=== PATIENT | female | born 1975 | race Caucasian/White ===

== ENCOUNTER 2016-12-31 18:38 | Emergency (ER) | payer OTHER ==
[2016-12-31 19:52] VITALS: BP 120/66
--- NOTE | 2016-12-31 20:36 | UC ---
Respiratory Complaint HPI - HPI Summary HPI Summary: URI symptoms for a week. Congested, feverish, body aches, fatigue for a week. Now starting with ST and cough. Hard to sleep due to persistent cough. No ill contacts she knows of. No flu shot. No vomiting or diarrhea - History of Current Complaint Chief Complaint: UCRespiratory Stated Complaint: SORE THROAT,COUGH Time Seen by Provider: 12/31/16 20:01 Hx Obtained From: Patient Hx Last Menstrual Period: 12/01/16 Onset/Duration: Gradual Onset, Lasting Weeks - 1 Timing: Constant Severity Initially: Mild Severity Currently: Mild Character: Cough: Nonproductive Aggravating Factors: Exertion, Recumbent Position Alleviating Factors: Nothing Associated Signs And Symptoms: Positive: Fever, Chills, URI, Nasal Congestion, Hoarseness. Negative: Pleuritic Chest Pain, Wheezing, Hemoptysis - Risk Factors Pulmonary Embolism Risk Factors: Negative Cardiac Risk Factors: Negative Pseudomonas Risk Factors: Negative Tuberculosis Risk Factors: Negative - Allergies/Home Medications Allergies/Adverse Reactions: Allergies Allergy/AdvReac Type Severity Reaction Status Date / Time No Known Allergies Allergy Verified 12/31/16 19:52 PMH/Surg Hx/FS Hx/Imm Hx Previously Healthy: Yes Endocrine History Of: Denies: Diabetes, Thyroid Disease Cardiovascular History Of: Denies: Cardiac Disorders, Hypertension, Pacemaker/ICD Respiratory History Of: Denies: Asthma GI/ History Of: Denies: Renal Disease - Surgical History Surgical History: Yes Surgery Procedure, Year, and Place: Left Wrist Fracture, 2012, [place](PLATE & SCREWS) - Family History Known Family History: Positive: Hypertension - Social History Occupation: Employed Full-time Lives: Alone Alcohol Use: Occasionally Substance Use Type: None Smoking Status (MU): Former Smoker Review of Systems Constitutional: Fever, Chills, Fatigue Skin: Negative Eyes: Negative ENT: Sore Throat, Nasal Discharge Respiratory: Cough Cardiovascular: Negative Gastrointestinal: Negative Genitourinary: Negative Motor: Negative Neurovascular: Negative Musculoskeletal: Negative Neurological: Negative Psychological: Negative All Other Systems Reviewed And Are Negative: Yes Physical Exam Triage Information Reviewed: Yes Appearance: Well-Appearing, No Pain Distress, Well-Nourished Vital Signs: Initial Vital Signs Temp 99.4 F 12/31/16 19:45 Pulse 74 12/31/16 19:45 Resp 20 12/31/16 19:45 BP 120/66 12/31/16 19:45 Pulse Ox 99 12/31/16 19:45 Vital Signs Reviewed: Yes Eye Exam: Normal ENT: Positive: Normal ENT inspection, Pharyngeal erythema, Nasal congestion, TMs normal, Muffled/hoarse voice - hoarse. Negative: Tonsillar swelling, Tonsillar exudate, Trismus Neck exam: Normal Neck: Positive: Supple Respiratory Exam: Normal Respiratory: Positive: Lungs clear, Normal breath sounds, No respiratory distress, No accessory muscle use Cardiovascular Exam: Normal Musculoskeletal Exam: Normal Neurological Exam: Normal Psychological Exam: Normal Skin Exam: Normal UC Diagnostic Evaluation - Laboratory O2 Sat by Pulse Oximetry: 99 Diagnostic Studies Comment: Strep neg Respiratory Course/Dx - Differential Dx/Diagnosis Differential Diagnosis/HQI/PQRI: Bronchitis, Lower Resp Infection, Sinusitis Provider Diagnoses: URI Discharge - Discharge Plan Condition: Stable Disposition: HOME Prescriptions: Guaifenesin-Codeine [Cheratussin AC] 1 - 2 teasp PO Q4HR PRN #120 ml MDD 30ml PRN Reason: Cough Patient Education Materials: Upper Respiratory Infection (ED) Referrals: Renee Leahy MD [Primary Care Provider] -
== END 2016-12-31 20:44 | disposition home or self-care (01) ==
LOC: UCCORT 18:38
DX: J06.9 Acute upper respiratory infection, unspecified (principal); Z87.891 Personal history of nicotine dependence
CPT/HCPCS: 87651; 99212; G0463

== ENCOUNTER 2018-10-26 18:08 | Emergency (ER) | payer OTHER ==
[2018-10-26 18:44] VITALS: BP 121/73
--- NOTE | 2018-10-26 20:23 | UC ---
Upper Extremity HPI - HPI Summary HPI Summary: Pt presents with persistent right wrist pain s/p fall while ice skating. Pt landed on lateral aspect of wrist. Pt states has had persistent discomfort since - states pain with ROM and movement of wrist. Pt states mostly feels deep ache with pronate/supinate. No paresthesia. PT with injury to wrist 30 years ago. Pt RHD. No analgesia taken. Pt's medications reviewed - History of Current Complaint Chief Complaint: UCUpperExtremity Stated Complaint: RT WRIST INJURY Time Seen by Provider: 10/26/18 20:22 Hx Obtained From: Patient Hx Last Menstrual Period: 10/19/18 Onset/Duration: Sudden Onset, Lasting Weeks Severity Initially: Mild Severity Currently: Moderate Pain Intensity: 5 Pain Scale Used: 0-10 Numeric Location Of Pain: Is Discrete @ - medial aspect distal wrist Aggravating Factor(s): Movement, Other - pronate/supinate Associated Signs And Symptoms: Positive: Swelling - Allergies/Home Medications Allergies/Adverse Reactions: Allergies Allergy/AdvReac Type Severity Reaction Status Date / Time No Known Allergies Allergy Verified 10/26/18 18:25 Home Medications: Home Medications B P Med For Palpitations 1 dose PO DAILY 10/26/18 [History Confirmed 10/26/18] Naproxen Sodium [Naproxen 220 mg] 440 mg PO DAILY PRN 10/26/18 [History Confirmed 10/26/18] Zolpidem TAB* [Ambien TAB*] 5 mg PO BEDTIME PRN 10/26/18 [History Confirmed ] PMH/Surg Hx/FS Hx/Imm Hx Previously Healthy: Yes - Surgical History Surgical History: Yes Surgery Procedure, Year, and Place: Left Wrist Fracture, 2013, [place] (PLATE & SCREWS) - Family History Known Family History: Positive: Hypertension - Social History Occupation: Employed Full-time - [employer] Alcohol Use: Occasionally Substance Use Type: None Smoking Status (MU): Former Smoker - Immunization History Most Recent Tetanus Shot: 2018 Review of Systems All Other Systems Reviewed And Are Negative: Yes Constitutional: Positive: Negative Skin: Positive: Other - mild edema right wrist, dorsum, medial aspect Motor: Positive: Negative Musculoskeletal: Positive: Other: - pain wrist, right Neurological: Positive: Negative Psychological: Positive: Negative Physical Exam - Summary Physical Exam Summary: Vital Signs Reviewed: Yes A+Ox3, no distress Eyes: Conjunctiva Clear ENT: Hearing grossly normal neck: supple Respiratory: Positive: No respiratory distress, No accessory muscle use Cardiovascular: skin color reflect adequate perfusion 2+ radial, ulnar CBT < 2 sec all digits Musculoskeletal Exam: LAND x 4 without difficulty, + flex/ext wrist + pronate/ supinate elbow with pain medial aspect of wrist + TTP ulnar styloid area no crepitus. No pain carpals, metacarpals, phalanges Neurological: Positive: Alert, ambulatory without difficulty, + thumb up, a ok , finger spread, finger cross Psychological: Positive: Normal Response To Family Skin: Positive: no rash, no ecchymosis Triage Information Reviewed: Yes Vital Signs: Initial Vital Signs Temp 97.7 F 10/26/18 18:35 Pulse 52 10/26/18 18:35 Resp 20 10/26/18 18:35 BP 121/73 10/26/18 18:35 Pulse Ox 99 10/26/18 18:35 Diagnostics - Radiology No standard instances Radiology Interpretation Completed By: ED Physician - minimally displaced, subacute distal ulnar fracture Upper Extremity Course/Dx - Course Course Of Treatment: PT presents with pain and discomfort right distal wrist s/ p fall 8 weeks ago - pt landed on wrist Pt with persistent pain - increases with movement. imaging shows ?subacute fracture distal ulnar. pt with previous styloid fracture - Differential Dx/Diagnosis Provider Diagnosis: Right distal ulnar fracture Discharge - Sign-Out/Discharge Documenting (check all that apply): Patient Departure All imaging exams completed and their final reports reviewed: No - Discharge Plan Condition: Stable Disposition: HOME Patient Education Materials: Wrist Fracture in Adults (ED) Referrals: Lv Rios MD [Medical Doctor] - (Call in the morning for a follow-up appointment this week ) Nurys Lehman [Primary Care Provider] - Additional Instructions: The doctor that evaluated you thinks you have a fracture (break to your wrist) from your recent fall. This appears to be partially healing It is recommended you contact Dr. Rios - orthopedic provider -call first thing tomorrow to schedule a follow-up appointment WEar conrado wrap and splint for support Okay to alternate ibuprofen (Advil, Motrin) and Tylenol every 3 hours for pain. Take with food - Billing Disposition and Condition Condition: STABLE Disposition: Home
--- NOTE | 2018-10-27 08:17 | UC ---
- Progress Note Progress Note: Patient Name: PRIYA GOINS Medical Record#: [id number] Ordering Physician: Marlin AGRCIA Acct.#: [id number] : 1975 Age: 43 Sex: F [place] [facility] [place] Date: 10/26/181843 ADM Status: [facility] ER Order Information: WRIST RIGHT 3+ VWS Accession Number: [id number] CPT: 71795 Indication: Right wrist pain 3 views of the wrist demonstrates no fracture. No other bone or joint abnormality is identified. Old fracture of the ulnar styloid process is noted. IMPRESSION: No recent fracture is noted. R0 Preliminary Imaging Read R0 <Electronically signed by Heydi Rhodes MD in OV> 10/27/18749 Dictated By: Heydi Rhodes MD Dictated Date/Time: 10/27/18 075 Transcribed Date/Time: 10/27/18 0749 Copy to: CC:Nurys Lehman [employer] MANAGER; Marlin GARCIA; Yaa Davis MD Imaging - [facility] [address] [address] ph ([phone]) ph ([phone]) ph ([phone]) This report is only to be considered final once signed by the Provider(s) as displayed in the "<Electronically Signed by >" field (s). Absence of a signature indicates the report is in a draft status and still needs to be finalized. In the event this document was created by someone other than the signing Provider, the individual initiating the document will be listed in the "Entered by:" or "Dictated by:" alba. 1 of 1 Course/Dx - Diagnoses Provider Diagnoses: Right distal ulnar fracture Discharge - Sign-Out/Discharge Documenting (check all that apply): Post-Discharge Follow Up All imaging exams completed and their final reports reviewed: Yes - Discharge Plan Condition: Stable Disposition: HOME Patient Education Materials: Wrist Fracture in Adults (ED) Referrals: Lv Rios MD [Medical Doctor] - (Call in the morning for a follow-up appointment this week ) Nurys Lehman [Primary Care Provider] - Additional Instructions: The doctor that evaluated you thinks you have a fracture (break to your wrist) from your recent fall. This appears to be partially healing It is recommended you contact Dr. Rios - orthopedic provider -call first thing tomorrow to schedule a follow-up appointment WEar conrado wrap and splint for support Okay to alternate ibuprofen (Advil, Motrin) and Tylenol every 3 hours for pain. Take with food - Billing Disposition and Condition Condition: STABLE Disposition: Home
== END 2018-10-26 20:53 | disposition home or self-care (01) ==
LOC: UCCORT 18:08
DX: S52.611A Displaced fracture of right ulna styloid process, initial encounter for closed fracture (principal); Y93.21 Activity, ice skating; Y92.9 Unspecified place or not applicable; Z87.891 Personal history of nicotine dependence
CPT/HCPCS: 99213; G0463

== ENCOUNTER 2018-11-29 13:31 | Emergency (ER) | payer OTHER ==
--- OUTSIDE RECORDS SUMMARY | 2018-11-29 13:44 | XMS REPORT | Continuity of Care Document ---
:1975 External Reference #:[id number] Author Name Mirella Fritz Care Team Providers Name Role Phone Nurys Lehman F.N.P Primary Care Physician Unavailable Payers Type Date Identification Numbers Payment Provider Subscriber Policy Number: [id number] [employer] Number: [id number] [address] [address] PayID: [id number] GiselleMELECIO [id number] Onset: 2015 Policy Number: [id number] [employer] Group Number: [id number] [address] PayID: [id number] [place] [address] Advance Directives Description No Information Available Problems Date Description Provider Status Onset: 11/05/2018 Late effect of sprain AND/OR strain Donte Phipps MD Active without tendon injury Onset: 11/05/2018 Late effect of fracture of upper Donte Phipps MD Active extremities Onset: 10/15/2015 Degeneration of lumbar intervertebral Junaid Mena M.D. Active disc Onset: 10/04/2015 Lumbar radiculopathy Junaid Mena M.D. Active Family History Date Family Member(s) Problem(s) Comments General Diabetes General Multiple Myeloma Social History Type Date Description Comments Sex Unknown Marital Status Single Lives With Boyfriend Lives With Son Occupation Currently Working [employer] ETOH Use Occasionally consumes alcohol Tobacco Use Start: Unknown End: Patient is a former Unknown smoker Recreational Drug Use Denies Drug Use Smoking Status Reviewed: 11/05/18 Patient is a former smoker Exercise Type/Frequency Exercises regularly Allergies, Adverse Reactions, Alerts Description No Known Drug Allergies Medications Medication Date Status Form Strength Qnty SIG Indications Ordering Provider Lexapro Active Tablets 20mg 1 by Unknown 000 mouth every day Zolpidem Tartrate 0 Active Tablets 10mg 1 tab by Unknown 000 mouth every night at bedtime as needed mdd 1 Naproxen Sodium Active Tablets 220mg as needed Unknown 000 Cyclobenzaprine 0 Hx Tablets 10mg 1 by Unknown HCL 000 - mouth three 018 times a day Hydrocodone-Acetam Hx Tablets 5-325mg Unknown inophen 000 - 015 Immunizations Description No Information Available Vital Signs Date Vital Result Comment 11/05/2018 3:11pm Height 65 inches 5'5" Weight 160.00 lb BP Systolic 122 mmHg BP Diastolic 82 mmHg Pain Level 0 BMI (Body Mass Index) 26.6 kg/m2 10/28/2018 9:07am Height 65 inches 5'5" Weight 150.00 lb BP Systolic Sitting 116 mmHg BP Diastolic Sitting 64 mmHg Respiratory Rate 17 /min Pain Level 2 with use increases to 4-5. BMI (Body Mass Index) 25.0 kg/m2 10/15/2015 11:48am Height 65 inches 5'5" Weight 160.00 lb Heart Rate 72 /min BP Systolic Sitting 126 mmHg BP Diastolic Sitting 80 mmHg Pain Level 3 back/R leg BMI (Body Mass Index) 26.6 kg/m2 10/04/2015 1:51pm Height 65 inches 5'5" Weight 160.00 lb Heart Rate 66 /min BP Systolic Sitting 110 mmHg BP Diastolic Sitting 60 mmHg Pain Level 4 back/r leg BMI (Body Mass Index) 26.6 kg/m2 Results Test Date Facility Test Result H/L Range Note Xray 10/05/2015 [facility] MRI Lumbar Spine W/O <pending> [address] [place] [address] [phone] Procedures Description No Information Available Encounters Type Date Location Provider Dx Diagnosis Office Visit 11/05/2018 Orthopedic Donte Phipps, S52.611S Displaced 3:00p [facility] MD fracture of right [place] ulna styloid process, sequela S63.591S Other specified sprain of right wrist, sequela Office Visit 10/28/2018 9:00a Orthopedic Lv Trent S52.611K Disp fx of r [facility] Rios MD ulna styloid AT [place] pro, subs for clos fx w nonunion Plan of Treatment 11/05/2018 - Donte Phipps, MDS52.611S Displaced fracture of right ulna styloid process, sequelaFollow up:Follow up: 10-14 days mhmqanM48.591S Other specified sprain of right wrist, sequela
[2018-11-29 14:12] VITALS: BP 116/64
--- NOTE | 2018-11-29 15:21 | UC ---
Respiratory Complaint HPI - HPI Summary HPI Summary: C/O cough congestion and sinus pain x 5 days. Unable to go to work. Coughing fits worse at night. - History of Current Complaint Chief Complaint: UCGeneralIllness Stated Complaint: COUGH, SORE THROAT Time Seen by Provider: 11/29/18 15:14 Hx Obtained From: Patient Hx Last Menstrual Period: 11/09/18 ?: No Onset/Duration: Sudden Onset, Lasting Days - 5, Still Present Severity Initially: Mild Severity Currently: Moderate Pain Intensity: 6 Character: Cough: Nonproductive Aggravating Factors: Deep Breaths, Recumbent Position Associated Signs And Symptoms: Positive: Wheezing, URI, Nasal Congestion, Sinus Discomfort. Negative: Dyspnea, Fever, Chills - Allergies/Home Medications Allergies/Adverse Reactions: Allergies Allergy/AdvReac Type Severity Reaction Status Date / Time No Known Allergies Allergy Verified 10/26/18 18:25 PMH/Surg Hx/FS Hx/Imm Hx Psychological History: Anxiety - Surgical History Surgical History: Yes Surgery Procedure, Year, and Place: Left Wrist Fracture, 2013, [place] (PLATE & SCREWS). [place] - Family History Known Family History: Positive: Hypertension, Diabetes - Social History Occupation: Employed Full-time Lives: With Family Alcohol Use: Daily Alcohol Amount: 1 GLASS OF WINE PER NIGHT Substance Use Type: None Smoking Status (MU): Former Smoker - Immunization History Most Recent Tetanus Shot: 2018 Review of Systems All Other Systems Reviewed And Are Negative: Yes ENT: Positive: Nasal Discharge Respiratory: Positive: Cough Is Patient Immunocompromised?: No Physical Exam Triage Information Reviewed: Yes Appearance: No Pain Distress, Well-Nourished, Ill-Appearing - mild Vital Signs: Initial Vital Signs Temp 97.8 F 11/29/18 14:09 Pulse 60 11/29/18 14:09 Resp 14 11/29/18 14:09 BP 116/64 11/29/18 14:09 Pulse Ox 99 11/29/18 14:09 Vital Signs Reviewed: Yes Eyes: Positive: Conjunctiva Clear ENT: Positive: Pharyngeal erythema, Nasal congestion, TMs normal Neck exam: Normal Respiratory: Positive: Lungs clear, Wheezing - scant expiratory wheeze with coughing. Cardiovascular Exam: Normal Musculoskeletal Exam: Normal Neurological Exam: Normal Psychological Exam: Normal Skin Exam: Normal UC Diagnostic Evaluation - Laboratory O2 Sat by Pulse Oximetry: 99 Respiratory Course/Dx - Differential Dx/Diagnosis Differential Diagnosis/HQI/PQRI: Asthma, Lower Resp Infection, Sinusitis Provider Diagnosis: URI (upper respiratory infection), Bronchospasm, acute Discharge - Sign-Out/Discharge Documenting (check all that apply): Patient Departure All imaging exams completed and their final reports reviewed: No Studies - Discharge Plan Condition: Stable Disposition: HOME Prescriptions: predniSONE TAB* [Deltasone 20 MG TAB*] 60 mg PO DAILY #18 tab Patient Education Materials: Upper Respiratory Infection (ED), Bronchospasm (ED ), Prednisone (By mouth) Referrals: Nurys Lehman [Primary Care Provider] - Additional Instructions: NASAL SPRAYS AND DROPS: Afrin in the PUMP/ MIST bottle (Get generic 12 hours nasal decongestant spray). Tilt your head down and look at the floor while doing a strong sniff with the spray. Decongestant nasal sprays and drops often give dramatic relief from congestion. They are often recommended for patients with sinus infection to assist with sinus drainage. Persons with high blood pressure should consult the doctor before using these nasal sprays. Afrin and Emeka-Synephrine are common [id number] preparations. They should not be used for more than five days, as "rebound" congestion can occur - - the congestion flares as the drug wears off. A way of dealing with this rebound congestion problem is to medicate only one nostril each time, allowing the other nostril to recover from the medicine' s effects. When you no longer need the drug during the day, spray only one nostril each night. This helps you sleep well without severe rebound congestion. Call the doctor if you develop severe headache, palpitations, or chest pain. - Billing Disposition and Condition Condition: STABLE Disposition: Home
== END 2018-11-29 15:33 | disposition home or self-care (01) ==
LOC: UCCORT 13:31
DX: J06.9 Acute upper respiratory infection, unspecified (principal); J98.01 Acute bronchospasm; Z87.891 Personal history of nicotine dependence
CPT/HCPCS: 99212; G0463

== ENCOUNTER → 2019-01-03 08:02 | Day surgery (SDC) | payer OTHER ==
[~2019-01-03 08:02] MED LIST: Acetaminophen IV 1GM/100ML * 1,000 MG/100 ML VIAL IVPB ONE; Acetaminophen IV 1GM/100ML * 100 ML ONE; Buffered Lidocaine 1% SYRIN* 1 ML/SYRINGE INTRADERM ONE; Dexamethasone IV* 4 MG/ML 1 ML (4 MG) ONE; Dexmedetomidine* 200 MCG/2 ML 2 ML VIAL ONE; DiMENhydriNATE IV* 50 MG/ML VIAL IV PUSH ONE; DiMENhydriNATE IV* 50 MG/ML VIAL ONE; Famotidine IV* 10 MG/ML 2 ML (20 mg) IV ONE; Famotidine IV* 10 MG/ML 2 ML (20 mg) ONE; HYDROmorphone INJ1* 1 MG/ML SYRINGE IV PRN; HYDROmorphone INJ1* 1 MG/ML SYRINGE ONE; Ketorolac INJ* 30 MG/ML 1 ML VIAL ONE; Lactated Ringers 1000 ML Bag* 1,000 ML IV SCH; Midazolam* 1 MG/ML 5 ML VIAL (5 MG) ONE; Naloxone* 0.4 MG/ML 1 ML VIAL IV PRN; Ondansetron INJ* 2 MG/ML VIAL ONE; Propofol* 10 MG/ML 20 ML BTL ONE; ROPIVACAINE 5 MG/ML 30 ML BTL (0.5%) ONE; Rocuronium* 10 MG/ML VIAL ONE; Scopolamine 1.5 mg* PATCH ONE; Succinylcholine* 20 MG/ML 10 ML VIAL ONE; ceFAZolin 2 GM PREMIX in ORs 2 GM/50 ML BAG IVPB ONE; fentaNYL* 50 MCG/ML 2 ML VIAL (100 MCG VIAL) ONE
[2019-01-03 15:23] VITALS: BP 110/42
--- NOTE | 2019-01-03 20:29 | OP ---
DATE OF OPERATION: 01/03/19 - [facility] DATE OF : 75 SURGEON: Donte Phipps MD FLY FRAME TENDER: JOSE Live. An advertising sales assistant was needed for the entirety of the procedure to aid in positioning of the arm and retraction. ANESTHESIOLOGIST: Dr. Weaver. ANESTHESIA: General. PRE-OP DIAGNOSES: 1. 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 2. Right wrist extensor carpi ulnaris tendinosis. POST-OP DIAGNOSES: 1. Right wrist ulnar styloid nonunion with a triangular fibrocartilage complex tear and distal radial ulnar joint instability. 2. Right wrist scapholunate ligament instability, stage 3. OPERATIVE PROCEDURES: 1. Right wrist arthroscopic debridement with synovectomy and TFCC tear debridement. 2. Right wrist arthroscopic thermal shrinkage of the scapholunate ligament tear. 3. Right wrist triangular fibrocartilage complex repair, repair of the ulnar styloid nonunion. INDICATIONS: This patient had an ulnar styloid nonunion and had a fall and probably tore through the pseudoarthrosis at the nonunion and made the DRUJ very unstable. She had pretty severe ulnar-sided wrist pain. I had talked to her about her treatment options and she had wanted to proceed with surgery. She understands that there is a risk of persistent pain and instability at the DRUJ. There is a chance that I may have to excise the ulnar styloid nonunion fragment and do a soft tissue TFCC repair or potentially reconstruction. She understands all of this and wanted to proceed with surgery. FINDINGS: See above and below. ESTIMATED BLOOD LOSS: 5 mL. COMPLICATIONS: None. DESCRIPTION OF PROCEDURE: Emy was seen in the preoperative holding area. The correct site, side, and procedure were identified. We came back to the operating room where the arm was prepped and draped in the usual fashion and a time-out was performed. The arm was placed in the Acumed traction tower and in-line traction was applied. The arm was exsanguinated and the tourniquet inflated to 250 mmHg. I began by making a 3-4 portal in standard fashion with the 11-blade followed by the mosquito and then the blunt trocar. The camera was introduced into the 3 -4 portal. The arthroscopy was begun. The radial-sided structures looked good. Dorsally, there was quite a bit of dorsal synovitis. I created a 6R portal in standard fashion. It was a bit difficult to get the portal in the right place and to enter the joint on the ulnar side as it became obvious immediately upon looking ulnar that the TFCC had assumed a very vertical position and had completely lost all of its mattress effect and was very unstable. Ultimately, I was able to get the 6R portal established and the shaver was introduced. I then performed a complete dorsal synovectomy as well as a synovectomy off of the ulnocarpal ligament anteriorly. There was a peripheral TFCC tear ulnar and dorsal and the edge of this was debrided as well with the shaver. There was no central tear. I did not appreciate any radial- sided tears as well. I did note during the arthroscopic portion that there was tearing of the scapholunate ligament off of the ulna. This particularly affected the dorsal component, the membranous component more and the visualizable portion of the anterior component looked much more intact, but clearly there was tearing and instability. I brought in my [employer] radiofrequency ablator and performed a thermal shrinkage of the dorsal component as well as the membranous component and the anterior component to the extent possible, although I did not create anterior portals. Ultimately, this shrunk down very nicely and looked very good after the thermal shrinkage was performed. With the thermal shrinkage performed and the synovectomy performed and the TFCC debrided, there was nothing more that I can do with the arthroscope and so I withdrew the arthroscopic equipment and this was handed off. I then made a dorsal incision over my DRUJ dorsally. This was brought over to incorporate the 6R portal. I raised a full-thickness flap off of the extensor retinaculum and then I opened the retinaculum over the fifth dorsal compartment. I then made a DRUJ arthrotomy. The EDM tendon was released and then retracted ulnarly and was left transposed at the end of the case. Ultimately, I brought back my DRUJ arthrotomy just proximal to the TFCC past the distal end of the ulna and then I made a separate arthrotomy distal to the TFCC incorporating my prior portal site. The nonunion was immediately apparent. The ulnar styloid fragment was very unstable and loose. I went ahead and used my [place] blade and a curette to resect all of the soft tissue off of the nonunion site. I then took the rajiv to freshen up the edges of both the distal end of the ulna and the nonunion fragment until I had what looked would be nice bleeding bone. Once I had everything prepared, I went ahead and reduced my nonunion fragment and held it in place with a couple of small K-wires and with the guidewires from the micro Acutrak screw. I checked mini C-arm fluoroscopy, and once I had confirmed that I liked the reduction of the nonunion fragment, I went ahead and overdrilled my first K- wire. As I was doing this, the wire was just a bit more too dorsal and not quite distal enough and so I fractured off that more proximal dorsal fragment. Additionally, the second K-wire did not hold well. I therefore went ahead and reduced the fragment and this time clamped and replaced with a very small, 0.2, reduction clamp. I then placed another one of the two guidewires from the very tip of the styloid down into the central portion of the cancellous bed of the ulnar styloid fragment. After I had that placed, this one I reduced and clamped it into place. I then advanced the guidewire down through the distal ulna. I measured and it was going to take the longest screw, so I selected a 20. I then very carefully overdrilled my wire and drilled through the far cortex of the distal ulna. Everything stayed nicely in place. I held some additional provisional fixation with the dental pick, as I very slowly advanced the micro Acutrak screw until it was buried all the way in the tip of the ulnar styloid and it exited just out the volar cortex of the distal ulna. Ultimately , there was excellent compression across the nonunion fragment. This was confirmed on mini C- arm fluoroscopy. I took that little piece of bone that had broken off and I morselized and I placed that as some bone graft all around the site. Please note that I had created a second ulnar incision near the ulnar mid axillary line to facilitate the screw placement. Care was taken to preserve the dorsal ulnar sensory nerve as I performed the dissection there. At this point, the TFCC had the tension restored to it and there was good trampoline effect. I went ahead and closed my capsulotomy as one full- thickness flap leaving the EDM tendon transposed. The dorsal TFCC was sewn into the capsular repair. Great care was taken not to sew in the ECU tendon, but to tighten up the dorsal soft tissue structures. This repair was performed with 3-0 Ethibond suture. I closed the deep fascia of my ulnar incision with a 3 -0 Vicryl suture. The skin for both incisions was then closed with 4-0 Monocryl and Steri-Strips. The 3-4 portal site was closed with the Steri-Strip. The 4x4s, Webril, and then a sugar-tong splint were applied with the forearm in neutral rotation. Tourniquet was deflated during splint placement and the fingers pinked up immediately. Marcaine had been infiltrated all around the operative area. She was then taken to the recovery room in stable condition. [id number]/[facility] #: [id number] VEE
== END | disposition home or self-care (01) ==
LOC: OR 08:02
PROVIDERS: ATTEND Orthopaedic Surgery Hand Surgery
DX: S63.591D Other specified sprain of right wrist, subsequent encounter (principal); M25.331 Other instability, right wrist; S52.614K Nondisplaced fracture of right ulna styloid process, subsequent encounter for closed fracture with nonunion; W19.XXXD Unspecified fall, subsequent encounter; Y92.9 Unspecified place or not applicable; Z87.891 Personal history of nicotine dependence; F41.8 Other specified anxiety disorders
CPT/HCPCS: 76000; 81025; A9270-GY; C1713; C1776; J0330; J0690; J1100; J1170; J1240; J1885; J2250; J2405; J2704; J2795; J3010

== ENCOUNTER 2019-01-20 08:36 | Day surgery (SDC) | payer OTHER ==
[~2019-01-20 08:36] MED LIST changes: -Acetaminophen IV 1GM/100ML * 1,000 MG/100 ML VIAL IVPB ONE; -Acetaminophen IV 1GM/100ML * 100 ML ONE; +Dexamethasone IV* 4 MG/ML 1 ML (4 MG) IV SLOW PU ONE; -Dexmedetomidine* 200 MCG/2 ML 2 ML VIAL ONE; -DiMENhydriNATE IV* 50 MG/ML VIAL IV PUSH ONE; -DiMENhydriNATE IV* 50 MG/ML VIAL ONE; -HYDROmorphone INJ1* 1 MG/ML SYRINGE IV PRN; -HYDROmorphone INJ1* 1 MG/ML SYRINGE ONE; -Ketorolac INJ* 30 MG/ML 1 ML VIAL ONE; +Midazolam* 1 MG/ML 2 ML VIAL (2 MG) ONE; -Midazolam* 1 MG/ML 5 ML VIAL (5 MG) ONE; -Naloxone* 0.4 MG/ML 1 ML VIAL IV PRN; -Ondansetron INJ* 2 MG/ML VIAL ONE; -Propofol* 10 MG/ML 20 ML BTL ONE; -ROPIVACAINE 5 MG/ML 30 ML BTL (0.5%) ONE; -Rocuronium* 10 MG/ML VIAL ONE; -Scopolamine 1.5 mg* PATCH ONE; -Succinylcholine* 20 MG/ML 10 ML VIAL ONE; +ceFAZolin 2 GM PREMIX in ORs 0 GM/0 ML BAG IVPB ONE; -ceFAZolin 2 GM PREMIX in ORs 2 GM/50 ML BAG IVPB ONE
[2019-01-20] MEDS ORDERED: ceFAZolin 2 GM PREMIX in ORs 2 GM/50 ML BAG IVPB ONE (08:46)
[2019-01-20] MEDS ORDERED: ROPIVACAINE 5 MG/ML 30 ML BTL (0.5%) ONE (11:13)
[2019-01-20] MEDS ORDERED: fentaNYL* 50 MCG/ML 2 ML VIAL (100 MCG VIAL) IV PRN (11:21)
[2019-01-20] MEDS ORDERED: Ketorolac INJ* 30 MG/ML 1 ML VIAL IV PRN (11:21)
[2019-01-20] MEDS ORDERED: oxyCODONE/Acetamin 5/325 MG* TAB PO PRN (11:21)
[2019-01-20] MEDS ORDERED: Naloxone* 0.4 MG/ML 1 ML VIAL IV PRN (11:21)
[2019-01-20] MEDS ORDERED: Acetaminophen TAB* 325 MG PO PRN (11:21)
[2019-01-20] MEDS ORDERED: DiMENhydriNATE IV* 50 MG/ML VIAL IV PUSH PRN (11:21)
[2019-01-20] MEDS ORDERED: Propofol* 10 MG/ML 20 ML BTL ONE (11:54)
[2019-01-20] MEDS ORDERED: Lidocaine 2% PF * 5 ML VIAL ONE (11:54)
[2019-01-20] MEDS ORDERED: Ondansetron INJ* 2 MG/ML VIAL ONE (12:51)
[2019-01-20 13:51] VITALS: BP 107/63
--- NOTE | 2019-01-20 19:23 | OP ---
DATE OF OPERATION: 01/20/19 - [facility] DATE OF : 75 SURGEON: Donte Phipps MD SALES PROMOTER: JOSE Caldwell. An dental chairside assistant was needed for the procedure to aid in positioning of the arm and retraction. ANESTHESIOLOGIST: Dr. Pittman. ANESTHESIA: General. PRE-OP DIAGNOSIS: Right wrist triangular fibrocartilage complex tear with failure of ulnar styloid nonunion fixation. POST-OP DIAGNOSIS: Right wrist triangular fibrocartilage complex tear with failure of ulnar styloid nonunion fixation. OPERATIVE PROCEDURES: 1. Removal of Acutrak screw, right wrist. 2. Excision of ulnar styloid nonunion fragment and repair of triangular fibrocartilage complex. INDICATIONS: Emy had a TFCC tear through an ulnar styloid nonunion and it resulted in some DRUJ instability. I had taken her a couple of weeks ago and I had tried I thought successfully to repair the ulnar styloid nonunion fragment with a micro Acutrak screw. At the time of surgery, we had good fixation, things were very stable. However, on her first postoperative visit, the x-ray showed fragmentation of the styloid fragment and loss of fixation of the screw. I therefore told her that she should come back and we should excise the fragmented ulnar styloid and perform a direct suture repair of the TFCC. She understands the risk of persistent pain, of instability, stiffness, of infection and other surgical complications and she wants to proceed. ESTIMATED BLOOD LOSS: 10 mL. COMPLICATIONS: None. FINDINGS: See above and below. DESCRIPTION OF PROCEDURE: Emy was seen in the preoperative holding area. The correct side, site, and procedure were identified. We came back to the operating room where the arm was prepped and draped in the usual fashion and time-out was performed. The arm was exsanguinated with the Esmarch and the tourniquet was inflated to 250 mmHg. I went and ahead and reopened her prior dorsal ulnar incision. Full - thickness flap was again raised off of the extensor retinaculum. The Ethibond sutures were removed that I had used to repair the retinaculum before. The retinaculum was reopened and the TFCC was again visualized. I was able to expose the micro Acutrak screw and then placed the guidewire down the screw. I then placed a screwdriver over the guidewire and removed the screw uneventfully. I then excised the multiple small fragments of the ulnar styloid. I then was able to mobilize and prepare the TFCC for repair. I checked the size of the bone tunnel from the screw with a Mini Mitek drill bit and it was same size, so I went ahead and placed 1 DePuy Mini Mitek drill bit into the bone tunnel for the screw. This held very nicely and I could not pull back out of the bone. I then came more dorsal to that and I made a drill hole for another DePuy Mini Mitek suture anchor and that was placed uneventfully. I then was able to whip stitch up into the periphery of the TFCC with more palmar 2-0 Ethibond suture. I then went ahead and again sewed up into the periphery of the TFCC more dorsally with the other 2-0 Ethibond suture from the another suture anchor. First, I then pulled traction on the another limb of my 2-0 Ethibond suture and pulled the TFCC down to the bone and tied it off. This was first done with more palmar suture and then the more dorsal suture was tied off providing excellent TFCC apposition to bone. The bony edge was already prepared from the attempted nonunion fixation. After I had the TFCC brought back down to the distal ulna, I went ahead and took a 3-0 PDS suture and placed 3 figure-of- eight PDS sutures to augment the repair of the periphery of the TFCC to the subsheath of the ECU and to the ulnar collateral ligament. After this repair, everything was looking very nice. I went and ahead and irrigated out the wound. The DRUJ was stable on exam. I closed my dorsal retinaculum and capsule in one layer with multiple 3-0 figure- of-eight Ethibond sutures, this was sewn to the dorsal TFCC to complete the TFCC repair. A couple of 4-0 Vicryl sutures were placed to bring the skin edges into apposition and then the skin was closed with a 4-0 Monocryl and then Steri-Strips were placed. 0.5% ropivacaine was infiltrated all around the operative area. Wounds were dressed with 4x4s, sterile Webril, and then a well- padded sugar-tong splint was applied. Tourniquet was deflated during the splint placement and the hand pinked up immediately. She was taken to the recovery room in stable condition. [id number] #: [id number] VEE
== END 2019-01-20 14:07 | disposition home or self-care (01) ==
LOC: OREAST 08:36
PROVIDERS: ATTEND Orthopaedic Surgery Hand Surgery
DX: S52.614K Nondisplaced fracture of right ulna styloid process, subsequent encounter for closed fracture with nonunion (principal); S63.591D Other specified sprain of right wrist, subsequent encounter; Z87.891 Personal history of nicotine dependence; X58.XXXD Exposure to other specified factors, subsequent encounter; Y92.9 Unspecified place or not applicable
CPT/HCPCS: 88300; C1713; C1776; J0690; J1100; J2250; J2405; J2704; J2795; J3010

== ENCOUNTER 2024-05-24 09:56 | Observation (INO) ==
[~2024-05-24 09:56] MED LIST changes: -Buffered Lidocaine 1% SYRIN* 1 ML/SYRINGE INTRADERM ONE; -Dexamethasone IV* 4 MG/ML 1 ML (4 MG) IV SLOW PU ONE; -Dexamethasone IV* 4 MG/ML 1 ML (4 MG) ONE; -Famotidine IV* 10 MG/ML 2 ML (20 mg) IV ONE; -Famotidine IV* 10 MG/ML 2 ML (20 mg) ONE; -Lactated Ringers 1000 ML Bag* 1,000 ML IV SCH; +Metoclopramide 5 MG/ML VIAL (10 mg) IV PRN; -Midazolam* 1 MG/ML 2 ML VIAL (2 MG) ONE; +NS 0.45% 1000 ml BAG 1,000 ML IV SCH; +Naloxone 0.4 mg VIAL 0.4 mg/ml 1 ml VIAL IV PRN; +Ondansetron 4 mg VIAL 2 MG/ML 2 ml VIAL IV PRN; -ceFAZolin 2 GM PREMIX in ORs 0 GM/0 ML BAG IVPB ONE; -fentaNYL* 50 MCG/ML 2 ML VIAL (100 MCG VIAL) ONE
[2024-05-24] MEDS ORDERED: fentaNYL 100 mcg/2 ml 50 MCG/ML VIAL ONE ×2 (10:37→16:38)
[2024-05-24] MEDS ORDERED: Propofol 10 MG/ML 20 ML BTL ONE ×2 (10:37→14:16)
[2024-05-24] MEDS ORDERED: Phenylephrine IV 10 MG/ML 1 ml VIAL ONE (10:37)
[2024-05-24] MEDS ORDERED: Midazolam 2 mg/2 ml VIAL 1 mg/ml 2 ml VIAL (2 mg) ONE (10:37)
[2024-05-24] MEDS ORDERED: Lidocaine 2% PF 5 ML VIAL ONE (10:37)
[2024-05-24 10:38] LABS: Rapid COVID-19 Molecular Undetected (Undetected)
[2024-05-24] MEDS ORDERED: Tranexamic Acid 1 GM/100ML BAG 2,000 MG/200 ML BAG IV ONE (10:53)
[2024-05-24] MEDS: Buffered Lidocaine 1% SYRIN 1 ml INTRADERM ONE (11:05)
[2024-05-24] MEDS: Lactated Ringers 1000 ml BAG 1,000 ML IV SCH ×2 (11:05→18:18)
[2024-05-24] MEDS: Scopolamine 1 mg/72hr PATCH TRANSDERM ONE (11:06)
[2024-05-24] MEDS ORDERED: ceFAZolin 2 GM PREMIX 2 GM/50 ML BAG ONE (11:18)
[2024-05-24] MEDS ORDERED: ROPIVACAINE 5 MG/ML 30 ML BTL (0.5%) ONE (12:06)
[2024-05-24] MEDS ORDERED: Rocuronium 50 mg VIAL 10 mg/ml 5 ml VIAL (50 mg) ONE ×2 (12:15→13:47)
[2024-05-24] MEDS ORDERED: Dexamethasone IV 4 MG/ML VIAL 1 ml VIAL ONE (13:12)
[2024-05-24] MEDS ORDERED: HYDROmorphone 0.5 MG/0.5 ML SYRINGE ONE ×2 (13:12)
[2024-05-24] MEDS ORDERED: Ondansetron 4 mg VIAL 2 MG/ML 2 ml VIAL ONE (13:12)
[2024-05-24] MEDS ORDERED: Metoclopramide 5 MG/ML VIAL (10 mg) ONE (13:48)
[2024-05-24] MEDS ORDERED: Glycopyrrolate IV 0.2 MG/ML 1 ML VIAL ONE (14:14)
[2024-05-24] MEDS ORDERED: Calcium Carb (TUMS) 500 mg CHEW TAB PO PRN (14:56)
[2024-05-24] MEDS ORDERED: Ondansetron ODT 4 mg TAB 4 MG TAB PO PRN (14:56)
[2024-05-24] MEDS ORDERED: Ondansetron 4 mg VIAL 2 MG/ML 2 ml VIAL IV PRN (14:56)
[2024-05-24] MEDS ORDERED: Lactulose 30 ml UDC PO PRN (14:56)
[2024-05-24] MEDS ORDERED: Magnesium Hydroxide LIQ 30 ML UDC PO PRN (14:56)
[2024-05-24] MEDS ORDERED: Morphine 2 MG/ML SYRINGE IV PRN (14:56)
[2024-05-24] MEDS: fentaNYL 100 mcg/2 ml 50 MCG/ML VIAL IV PRN (16:40)
[2024-05-24] MEDS: Acetaminophen IV 1 GM/100ML 1,000 MG/100 ML BAG IV ONE (18:07)
[2024-05-24] MEDS: Magnesium Hydroxide LIQ 30 ML UDC PO SCH (21:48)
[2024-05-24] MEDS: ceFAZolin 2 GM PREMIX 2 GM/50 ML BAG IVPB SCH (21:55)
[2024-05-25 06:27] LABS: Hematocrit 30.4 % (35-45); Hemoglobin 10.2 g/dL (11.5-14.3); Mean Platelet Volume 7.8 fL (7.5-11.2); Platelet Count 271 10^3/uL (150-450)
[2024-05-25 07:17] LABS: Calcium 8.1 mg/dL (8.6-10.3); Creatinine, Serum 0.84 mg/dL (0.51-0.95); Potassium 4.2 mmol/L (3.5-5.0); eGFR CKD-EPI 85.1 (>60)
[2024-05-25] MEDS: Vitamin THERAPEUTIC TAB PO SCH (08:35)
[2024-05-25 10:21] VITALS: BP 124/68
== END 2024-05-25 13:40 | disposition home or self-care (01) ==
LOC: OR 09:56 → SSU 09:56 → EDSTATUS 12:30
PROVIDERS: ADMIT Orthopaedic Surgery Adult Reconstructive Orthopaedic Surgery; ATTEND Orthopaedic Surgery Adult Reconstructive Orthopaedic Surgery